=== PATIENT | female | born 1980 | race Caucasian/White ===

== ENCOUNTER 2017-10-13 11:27 | Day surgery (SDC) | payer OTHER ==
[2017-10-12 13:45] VITALS: BMI 50.4
[~2017-10-13 11:27] MED LIST: Dexamethasone 20 MG/5 ML VIAL ONE; Glycopyrrolate 0.2 MG/ML 5 ML SYRINGE ONE; Lidocaine 1% PF 5 ML VIAL ONE; Ondansetron HCl/PF 4 MG/2 ML Vial ONE; PROPOFOL 200 MG/20 ML VIAL ONE; Succinylcholine Chloride 20 MG/ML 10 ml SYRINGE FS ONE
[2017-10-13] MEDS ORDERED: Oxymetazoline HCl 0.05% ( 15 ML ) ONE ×2 (11:59→12:36)
[2017-10-13] MEDS ORDERED: Lidocaine 1% w/Epinephrine 1:200K 30 ML VIAL ONE (12:36)
[2017-10-13] MEDS ORDERED: Bacitracin Zinc Ointment 30 gm TUBE ONE (12:36)
[2017-10-13 12:46] LABS: BHCG - Serum Negative (NEGATIVE); Pregs Control Background? CLEAR/WHITE (CLR/WHITE); Pregs Control Bar Appear? YES (CONTROL BAR)
[2017-10-13] MEDS ORDERED: Morphine 10 MG/ML VIAL ONE (13:08)
[2017-10-13] MEDS ORDERED: Midazolam HCl 2 mg/2 ml Vial ONE (13:36)
[2017-10-13] MEDS ORDERED: Ondansetron HCl/PF 4 MG/2 ML Vial ONE (15:08)
--- NOTE | 2017-10-13 15:11 | OP ---
DATE OF PROCEDURE: 10/13/2017 PREOPERATIVE DIAGNOSES: Chronic sinusitis, recurrent sinusitis, deviated septum, hypertrophic inferi or turbinates. POSTOPERATIVE DIAGNOSES: Chronic sinusitis, recurrent sinusitis, deviated septum, hypertrophic infer ior turbinates. PROCEDURES PERFORMED: 1. Septoplasty. 2. Bilateral nasal endoscopy with maxillary antrostomy. 3. Bilateral nasal endoscopy with total ethmoidectomy. 4. Bilateral nasal endoscopy with frontal sinusotomy. 5. Outfracture and submucosal resection of inferior turbinates. PROCEDURE IN DETAIL: After consent was obtained, the patient was identified, brought to the operatin g room, and placed on the operating room table in the supine position. Consent was obtained, notifyi ng the patient of the possibility of additional infections, bleeding, brain injury, and eye/orbital i njury. The patient was placed on the operating room table, and general endotracheal anesthesia and intravenous access was obtained. The patient was then positioned, prepped and draped for endoscopic sinus surgery. Nasal preparation included trimming nasal vestibular hairs and spraying in topical Af rin. We then placed Afrin topical solution on nasal pledgets and strategically located them intranas ally. The perinasal mucosa was injected with 1% lidocaine with 1:100,000 epinephrine in the submucop erichondrial plane of the septum, lateral nasal wall, and anterior to the uncinate. The patient was then prepped and draped in a sterile fashion and positioned for endoscopic sinus surgery. (Septoplasty) After local anesthesia was infiltrated into the submucoperichondrial plane, a standard Treynor incisi on was made with a #15 blade down to the level of the septal cartilage. The caudal elevator was used to elevate the mucoperichondrium from the underlying cartilage. We then proceeded beyond the bony c artilaginous junction and elevated the bony periosteum as well. Great attention was paid to the spur to prevent rent formation in the septal flap. A transcartilaginous incision was then made, while pre serving an adequate dorsal and caudal cartilaginous strut for tip support. The deformed cartilage wa s removed and disarticulated from the bony cartilaginous junction and maxillary crest. This was plac ed in saline and would later be crushed and returned to the mucoperichondrial envelope. We then elev ated the contralateral periosteum from the bony cartilaginous region and removed the deformed portion s of the bone and bony spurs. The cartilage was then crushed and placed back into the mucoperichondr ial envelope and the mucosa was re-approximated with a quilting stitch composed of rapidly absorbent gut suture. The Bobby incision was also closed with interrupted gut suture. At the completion of the case, Carballo splints were placed and suture secured to the caudal septum. (Maxillary Antrostomy) The uncinate was then identified and the extent of the uncinate was appreciated by out-fracturing the uncinate with the ball-tip probe. We then used the sickle blade to disarticulate the uncinate from the lateral nasal wall. This was then removed with straight biting and upbiting punches with the rem aining shrouds of mucosa and bony septum removed with the micro-debrider. The natural os of the maxi llary sinus was then identified and enlarged with the maxillary punches and back biting forceps. (Total Ethmoidectomy) The anterior face of the ethmoid bulla was entered and with the micro-debrider, dissection continued posteriorly to the ground lamella. The limits of dissection included the insertion of the middle tur binate, medial orbital wall, and base of skull. We similarly identified the frontal recess and remov ed shrouds of bone and debris in that region to obtain patency into the agger nasi region and frontal recess. We then entered the ground lamella and its anteroinferior aspect and proceeded posteriorly, opening the posterior ethmoid air-cell system. Again, the limits of dissection included the base of skull and medial orbital wall. (Outfracture of the Inferior Turbinates) The inferior turbinates were visualized under endoscopic visualization and outfractured with the elev ator. The inferolateral edge of the inferior turbinate was then cauterized along its length with the suction cautery without difficulty. (Outfracture & Cautery of the Inferior Turbinates) The inferior turbinates were visualized with a 0-degree endoscope and outfractured with a Nicol eleva tor. The inferior medial aspect was cauterized with the electrocautery. Hemostasis was obtained. A fter adequate airway was established, we turned our attention to the contralateral side and used a si milar procedure. Again, a Nicol elevator was used to outfracture inferior turbinates under endoscopi c visualization. With a suction cautery, the free inferior medial aspect was cauterized under direct visualization along the length of the inferior turbinate. At this point, we then turned our attention to the contralateral side and proceeded with endoscopic s inus surgery. At the completion of the case, Rice keel splints were placed in the ethmoid cavities after the ethmoi dectomy. There were no complications. The patient tolerated the procedure well and was discharged t o the recovery room in stable condition prior to return to the preoperative Day Stay with [facility]. Prescriptions for pain medication and antibiotics were provided. The patient received intramuscular Depo-Medrol during the case.
[2017-10-13] MEDS ORDERED: Fentanyl 100 MCG/2 ML VIAL ONE ×2 (15:15→15:39)
[2017-10-13] MEDS ORDERED: Hydrocodone-Acetamin 15 ML UDCUP ONE ×2 (16:55)
== END 2017-10-13 18:10 | disposition home or self-care (01) ==
LOC: SDC 11:27
PROVIDERS: ATTEND Specialist
PROC: 09BR8ZZ Excision of Left Maxillary Sinus, Via Natural or Artificial Opening Endoscopic (ICD-10-PCS; principal; 2017-10-13)
PROC: 09TV8ZZ Resection of Left Ethmoid Sinus, Via Natural or Artificial Opening Endoscopic (ICD-10-PCS; principal; 2017-10-13)
PROC: 09RM07Z Replacement of Nasal Septum with Autologous Tissue Substitute, Open Approach (ICD-10-PCS; principal; 2017-10-13)
PROC: 09TU8ZZ Resection of Right Ethmoid Sinus, Via Natural or Artificial Opening Endoscopic (ICD-10-PCS; principal; 2017-10-13)
PROC: 09BT8ZZ Excision of Left Frontal Sinus, Via Natural or Artificial Opening Endoscopic (ICD-10-PCS; principal; 2017-10-13)
PROC: 09BQ8ZZ Excision of Right Maxillary Sinus, Via Natural or Artificial Opening Endoscopic (ICD-10-PCS; principal; 2017-10-13)
PROC: 09BS8ZZ Excision of Right Frontal Sinus, Via Natural or Artificial Opening Endoscopic (ICD-10-PCS; principal; 2017-10-13)
PROC: 09SL8ZZ Reposition Nasal Turbinate, Via Natural or Artificial Opening Endoscopic (ICD-10-PCS; principal; 2017-10-13)
DX: J32.9 Chronic sinusitis, unspecified (principal); J34.2 Deviated nasal septum; J34.3 Hypertrophy of nasal turbinates; K21.9 Gastro-esophageal reflux disease without esophagitis; F31.9 Bipolar disorder, unspecified; F41.9 Anxiety disorder, unspecified; I10 Essential (primary) hypertension; E78.5 Hyperlipidemia, unspecified; J45.909 Unspecified asthma, uncomplicated; K76.0 Fatty (change of) liver, not elsewhere classified; Z88.0 Allergy status to penicillin; Z88.1 Allergy status to other antibiotic agents; Z88.2 Allergy status to sulfonamides; Z88.8 Allergy status to other drugs, medicaments and biological substances; Z91.018 Allergy to other foods; Z79.899 Other long term (current) drug therapy
CPT/HCPCS: 84703; 85014; 96374; J1100; J2001; J2250; J2270; J2405; J2704; J3010

== ENCOUNTER 2019-01-11 09:32 | Day surgery (SDC) | payer OTHER ==
[2019-01-10 11:30] VITALS: BMI 59.7
--- NOTE | 2019-01-11 10:57 | CT ---
CT paranasal sinuses noncontrast: DATE: 01/11/2019 HISTORY: 38-year-old female with paranasal sinus disease. COMPARISON: None FINDINGS: Right frontal sinus hypoplastic and clear. Right frontal recess patent and clear. Left frontal sinus patent and clear. Status post resection of multiple bilateral ethmoid septa and uncinate processes. Postsurgical bilate ral ethmoid sinuses are grossly clear. Mucosal thickening at the floors of bilateral maxillary sinuses, left greater than right. Upper porti ons of maxillary sinuses are clear. 20% opacification left maxillary sinus. 10% opacification right maxillary sinus. No occlusion of channels of communication between maxillary sinuses and nasal cavity . Nasal cavity is clear. Sphenoid sinus is clear. Sphenoid ostia are clear.. Status post resection of anterior portion of right middle turbinate including lamella. IMPRESSION: 1. Status post bilateral ethmoidectomies, bilateral uncinectomies, and partial right turbinectomy. 2. Moderate mucosal thickening floors of bilateral maxillary sinuses. 3. The rest of the sinuses are otherwise clear.
[2019-01-11 12:21] VITALS: BP 130/70; TEMP 97.9
--- NOTE | 2019-01-11 13:32 | ULT ---
EXAM: US Thyroid STANDARD PROVIDED CLINICAL HISTORY: Thyroid nodule COMPARISON: 12/28/2018 obtained from [facility]. FINDINGS: There is a hypoechoic dominant nodule again seen within the midportion of the right lobe of the thyro id gland measuring 2.5 cm x 1.6 cm x 1.9 cm. No nodule is seen within the left lobe of the thyroid gland. The right lobe of the thyroid gland measures 4.8 cm x 2 cm x 1.5 cm with the left lobe measuring 4.3 cm x 1.6 cm x 1.4 cm. The thyroid isthmus is mildly thickened measuring 0.5 cm in AP dimensions. IMPRESSION: BI-RADS level 4: Moderately suspicious nodule right lobe of the thyroid gland. Based on size charstevene ristics, fine needle aspiration is recommended.
--- NOTE | 2019-01-11 13:39 | ULT ---
EXAM: US Thyroid Needle Bx PROVIDED CLINICAL HISTORY: Right thyroid nodule. Fine-needle aspiration was requested. COMPARISON: Thyroid ultrasound obtained on today's date as well as an outside study obtained on 12/28/2018 TECHNIQUE: After informed consent was obtained, the patient was placed on the sonography table in the supine pos ition. Limited sonographic evaluation of the neck was performed, and the dominant nodule right lobe of thyroid gland was localized. An area was meticulously prepped and draped in usual sterile fashion. Skin and subcutaneous tissues were infiltrated with buffered 1% lidocaine for local anesthesia. Utilizing concurrent real time ultrasound guidance, a total of five 25-gauge fine-needle aspiration s pecimens were obtained from the nodule. Postoperative fine-needle aspiration images demonstrate no adjacent fluid or fluid collection or find ings to suggest hemorrhage. The patient tolerated the procedure well and without immediate consultation. Dry sterile dressing was placed at puncture site. IMPRESSION: 1. Dominant right thyroid lobe nodule. 2. Technically successful ultrasound-guided fine-needle aspiration of right thyroid nodule. Pathology is pending.
== END 2019-01-11 12:00 | disposition home or self-care (01) ==
LOC: CT 09:32
PROVIDERS: ATTEND Specialist
PROC: 0G9H3ZX Drainage of Right Thyroid Gland Lobe, Percutaneous Approach, Diagnostic (ICD-10-PCS; principal; 2019-01-11)
DX: E04.1 Nontoxic single thyroid nodule (principal); I10 Essential (primary) hypertension; E11.43 Type 2 diabetes mellitus with diabetic autonomic (poly)neuropathy; K31.84 Gastroparesis; E11.40 Type 2 diabetes mellitus with diabetic neuropathy, unspecified; J45.909 Unspecified asthma, uncomplicated; J32.9 Chronic sinusitis, unspecified; Z79.1 Long term (current) use of non-steroidal anti-inflammatories (NSAID); Z79.899 Other long term (current) drug therapy; Z88.0 Allergy status to penicillin; Z88.1 Allergy status to other antibiotic agents; Z88.8 Allergy status to other drugs, medicaments and biological substances; Z91.018 Allergy to other foods; Z98.890 Other specified postprocedural states
CPT/HCPCS: 60100; 76536; 76942; 88173

== ENCOUNTER 2021-11-02 09:58 | Outpatient (CLI) | payer OTHER, MEDICAID | END 2021-11-02 09:59 | disposition home or self-care (01) | LOC: CT 09:58 | PROVIDERS: ATTEND Specialist | DX: J32.9 Chronic sinusitis, unspecified (principal); J34.89 Other specified disorders of nose and nasal sinuses; Z98.890 Other specified postprocedural states ==

== ENCOUNTER 2021-12-15 15:33 | Outpatient (CLI) | payer OTHER, MEDICAID ==
[2021-12-15 17:55] LABS: BHCG - Serum Negative (NEGATIVE); Pregs Control Background? CLEAR/WHITE (CLR/WHITE); Pregs Control Bar Appear? YES (CONTROL BAR)
[2021-12-16 00:20] LABS: SARS-CoV-2 PCR by NAA Not Detected (NotDetected)
== END 2021-12-15 15:34 | disposition home or self-care (01) ==
LOC: LABBT 15:33
PROVIDERS: ATTEND Specialist
DX: Z01.812 Encounter for preprocedural laboratory examination (principal); J32.9 Chronic sinusitis, unspecified; J32.0 Chronic maxillary sinusitis; B49 Unspecified mycosis; J32.1 Chronic frontal sinusitis; J32.3 Chronic sphenoidal sinusitis; J34.3 Hypertrophy of nasal turbinates; J30.9 Allergic rhinitis, unspecified; G50.1 Atypical facial pain; Z20.822 Contact with and (suspected) exposure to COVID-19
CPT/HCPCS: 84703; 85014; U0003; U0005

== ENCOUNTER 2021-12-17 11:16 | Day surgery (SDC) | payer OTHER, MEDICAID ==
[2021-12-16 08:41] VITALS: BMI 62.4
[2021-12-17] MEDS ORDERED: AFRIN NASAL MIST 15 ML BOT ONE ×4 (11:34→13:28)
[2021-12-17] MEDS ORDERED: Lidocaine 1% w/Epinephrine 1:100K 20 ML VIAL ONE (12:27)
[2021-12-17] MEDS ORDERED: EPINEPHrine 1 MG/ML AMP ONE (12:27)
[2021-12-17] MEDS ORDERED: fentaNYL Citrate/PF 100 MCG/2 ML SYRINGE ONE (12:38)
[2021-12-17] MEDS ORDERED: Triamcinolone 40 MG/ML VIAL ONE (13:35)
[2021-12-17] MEDS ORDERED: Fentanyl 100 MCG/2 ML VIAL ONE (14:05)
[2021-12-17] MEDS ORDERED: HYDROcodone/Acetaminophen 5/325 mg Tablet ONE (14:58)
== END 2021-12-17 15:55 | disposition home or self-care (01) ==
LOC: SDC 11:16
PROVIDERS: ATTEND Specialist
PROC: 8E09XBZ Computer Assisted Procedure of Head and Neck Region (ICD-10-PCS; principal; 2021-12-17)
PROC: 09SL8ZZ Reposition Nasal Turbinate, Via Natural or Artificial Opening Endoscopic (ICD-10-PCS; 2021-12-17)
PROC: 099T8ZZ Drainage of Left Frontal Sinus, Via Natural or Artificial Opening Endoscopic (ICD-10-PCS; 2021-12-17)
PROC: 099X8ZZ Drainage of Left Sphenoid Sinus, Via Natural or Artificial Opening Endoscopic (ICD-10-PCS; 2021-12-17)
PROC: 09BR8ZZ Excision of Left Maxillary Sinus, Via Natural or Artificial Opening Endoscopic (ICD-10-PCS; 2021-12-17)
PROC: 09TV8ZZ Resection of Left Ethmoid Sinus, Via Natural or Artificial Opening Endoscopic (ICD-10-PCS; 2021-12-17)
DX: J32.8 Other chronic sinusitis (principal); G89.29 Other chronic pain; G50.1 Atypical facial pain; J34.3 Hypertrophy of nasal turbinates; J34.89 Other specified disorders of nose and nasal sinuses; J30.89 Other allergic rhinitis; B48.8 Other specified mycoses; Z79.1 Long term (current) use of non-steroidal anti-inflammatories (NSAID); Z79.4 Long term (current) use of insulin; Z79.899 Other long term (current) drug therapy; Z88.0 Allergy status to penicillin; Z88.1 Allergy status to other antibiotic agents; Z88.7 Allergy status to serum and vaccine; Z88.8 Allergy status to other drugs, medicaments and biological substances; Z91.018 Allergy to other foods
CPT/HCPCS: 36416; J0171; J3010; J3301